=== PATIENT | male | born 1945 | race Two or more races ===

== ENCOUNTER 2020-04-03 14:35 | Inpatient (IN) | payer OTHER ==
[~2020-04-03] VITALS: Ht 167.6 cm; Wt 89.8 kg
[~2020-04-03 14:35] MED LIST: COZAAR100 MG PO; DIGOXIN125 MCG PO; GLIPIZIDE ER5 MG PO; INSULIN SYRING1 EA29 SUBCUTANEO; METFORMIN HCL500 M3 PO; TRADJENTA5 MG PO
[2020-04-04] MEDS ORDERED: GLIPIZIDE XL10 MG PO (08:03)
[2020-04-04] MEDS ORDERED: FEOSOL325 MG PO (08:03)
== END 2020-04-07 14:55 | disposition home or self-care (01) | DRG 331 ==
LOC: SURH 04-04 06:27 → O/R 04-04 06:27 → SURG 04-04 10:25 → SURH 04-04 15:30
PROVIDERS: ADMIT Colon & Rectal Surgery
PROC: 07BC0ZX Excision of Pelvis Lymphatic, Open Approach, Diagnostic (ICD-10-PCS; 2020-04-04)
PROC: 0DBP0ZZ Excision of Rectum, Open Approach (ICD-10-PCS; 2020-04-04)
PROC: 0DBN0ZZ Excision of Sigmoid Colon, Open Approach (ICD-10-PCS; principal; 2020-04-04 11:15)
DX: C19 Malignant neoplasm of rectosigmoid junction (principal); E11.9 Type 2 diabetes mellitus without complications; I10 Essential (primary) hypertension

== ENCOUNTER 2020-05-09 05:35 | Day surgery (SDC) | payer OTHER ==
[~2020-05-09 05:35] MED LIST changes: +FEOSOL325 MG PO; +GLIPIZIDE XL10 MG PO
== END 2020-05-09 12:10 | disposition home or self-care (01) ==
LOC: CIR.AMB 05:35 → ADM 08:30 → CIR.AMB 12:10
PROVIDERS: ATTEND Colon & Rectal Surgery
DX: C20 Malignant neoplasm of rectum (principal)
CPT/HCPCS: 36561; C1751

== ENCOUNTER 2020-06-23 13:29 | Emergency (ER) | payer OTHER ==
[~2020-06-23] VITALS: Ht 182.9 cm; Wt 81.6 kg
== END 2020-06-23 19:56 | disposition home or self-care (01) ==
LOC: ER 13:29
DX: E09.649 Drug or chemical induced diabetes mellitus with hypoglycemia without coma (principal); R10.13 Epigastric pain; Z20.828 Contact with and (suspected) exposure to other viral communicable diseases; T45.1X5A Adverse effect of antineoplastic and immunosuppressive drugs, initial encounter; Y92.89 Other specified places as the place of occurrence of the external cause

== ENCOUNTER 2021-05-04 08:05 | Day surgery (SDC) | payer OTHER | END 2021-05-04 13:35 | disposition home or self-care (01) | LOC: AMB-ENDOS 08:05 | PROVIDERS: ATTEND Colon & Rectal Surgery | DX: C20 Malignant neoplasm of rectum (principal); Z20.822 Contact with and (suspected) exposure to COVID-19 ==